=== PATIENT | male | born 1995 | race Caucasian/White ===

== ENCOUNTER 2018-08-09 13:10 | Emergency (ER) | payer MEDICAID ==
[~2018-08-09] VITALS: Ht 182.9 cm; Wt 129.7 kg
[~2018-08-09 13:10] MED LIST: NORCO 5-325 TA1 EACH PO
[2018-08-09 13:59] LABS: INFLUENZA A ANTIGEN None Detected (None Detect); INFLUENZA B ANTIGEN None Detected (None Detect)
[2018-08-09] MEDS ORDERED: AMOXICILLIN 50500 MG PO (14:33)
[2018-08-09 14:35] VITALS: BP 114/82
== END 2018-08-09 14:35 | disposition home or self-care (01) ==
LOC: M.ERS 13:10
PROVIDERS: Nurse Practitioner Family
DX: J02.0 Streptococcal pharyngitis (principal)

== ENCOUNTER 2021-09-06 19:08 | Inpatient (IN) | payer MEDICAID ==
[~2021-09-06] VITALS: Ht 185.4 cm; Wt 139.7 kg
[~2021-09-06 19:08] MED LIST changes: +AMOXICILLIN 50500 MG PO
[2021-09-06 19:32] VITALS: BP 94/62
[2021-09-06] MEDS ORDERED: ZOLOFT100 MG PO (19:53)
--- NOTE | 2021-09-06 19:54 | NUR ---
STATES DAD IS JEMIMA COHEN- [phone]- REQUIRED FOR SPEECH IMPEDIMENT
[2021-09-06] MEDS ORDERED: TRAZODONE HCL50 MG PO (19:56)
[2021-09-06 20:31] LABS: INFLUENZA A ANTIGEN Negative (Negative); INFLUENZA B ANTIGEN Negative (Negative)
[2021-09-06 20:38] LABS: HEMATOCRIT 45.7 % (42.0-52.0); MCH 28.7 pg (26.0-34.0); MCHC 35.1 g/dL (28.0-37.0); MCV 81.9 fL (80.0-100.0); MPV 8.4 fl. (7.2-11.1); NUCLEATED RBCS 0 /100WBC; PLATELET COUNT* 113 thou/uL (150-400); RBC 5.57 mil/uL (4.50-6.00); RDW-CV 13.2 % (10.5-14.5); WBC 5.8 thou/uL (4.0-11.0)
[2021-09-06 20:58] LABS: CALCIUM 7.4 mg/dL (8.5-10.1); CREATININE 1.6 mg/dL (0.6-1.3); POTASSIUM 3.6 mmol/L (3.5-5.1)
[2021-09-06 21:09] LABS: ALBUMIN 3.7 g/dL (3.4-5.0); TOTAL BILIRUBIN 0.5 mg/dL (<0.1-1.0); TOTAL PROTEIN 6.8 g/dL (6.4-8.2)
[2021-09-06 21:28] LABS: ABSOLUTE LYMPHOCYTES 0.5 thou/uL (0.8-5.3); ABSOLUTE MONOCYTES 0.2 thou/uL (0.0-1.2); ABSOLUTE NEUTROPHILS 5.2 thou/uL (1.6-8.1); PLATELET ESTIMATE ADEQUATE
--- NOTE | 2021-09-06 21:47 | NUR ---
PT STATES IT IS OKAY TO TAKE TO [facility].
[2021-09-07] VITALS (9 sets, daily range): BP systolic 107–147; BP diastolic 37–83
--- NOTE | 2021-09-07 12:32 | EKG ---
[place] [address] ELECTROCARDIOGRAM REPORT Name: MANNIE SEO Room: [place] [address] ADM IN [facility].#: [id number] Admission: 09/06/21 Attend Phys: Nj Barcenas, Discharge: Date of : 89 Date of Service: 09/06/212032 Report #: [id number] THIS REPORT FOR: //name// [facility] ED Test Date: 2021-09-06 Test Time: 20:33:58 Pat Name: MANNIE GONSALES Department: Room: [facility] Gender: M On Call: DENISE : 1995 Requested By: Tyrese Phillips Order Number: [id number] MD: Mannie Kelly Measurements Intervals [place] Rate: 98 P: 62 FL: 125 QRS: 17 QRSD: 123 T: 71 QT: 328 QTc: 419 Interpretive Statements Sinus rhythm Baseline artifact Baseline wander in lead(s) V2,V6 No previous ECG available for comparison Electronically Signed On 09-07-2021 12:31:56 LENS POLISHER by Mannie Kelly [email or web address] <ELECTRONICALLY SIGNED> By: Mannie Kelly MD, FAC 09/07/21 1231 32 32 Mannie Kelly MD, [facility] /EPI
--- NOTE | 2021-09-07 16:10 | NUR ---
CM ASSESSMENT ASSESSMENT COMPLETED WITH PT'S CONTACT ([place] [phone]). PT LIVE WITH PARENTS IN HOME WITH STEPS. PT HAS NO HX OF DME, SNF, REHAB, OR HH. PT IS INDEPENDENT WITH ADLS. CM TO FOLLOW FOR DC PLANNING.
[2021-09-08] VITALS: BP 109/74
[2021-09-08 04:00] VITALS: BP 113/64
[2021-09-08 04:06] LABS: HEMATOCRIT 43.2 % (42.0-52.0); HEMOGLOBIN 14.7 gm/dL (14.0-18.0); MCH 28.2 pg (26.0-34.0); MCHC 34.1 g/dL (28.0-37.0); MCV 82.8 fL (80.0-100.0); MPV 8.6 fl. (7.2-11.1); RBC 5.22 mil/uL (4.50-6.00); RDW-CV 13.4 % (10.5-14.5); WBC 6.5 thou/uL (4.0-11.0)
[2021-09-08 04:42] LABS: ALBUMIN 3.4 g/dL (3.4-5.0); CALCIUM 7.4 mg/dL (8.5-10.1); CREATININE 1.3 mg/dL (0.6-1.3); POTASSIUM 3.5 mmol/L (3.5-5.1); TOTAL BILIRUBIN 0.3 mg/dL (<0.1-1.0); TOTAL PROTEIN 6.5 g/dL (6.4-8.2)
[2021-09-08 08:00] VITALS: BP 103/67
--- NOTE | 2021-09-08 08:19 | NUR ---
Arrived to floor at 2300. He has a bipap and a nonrebreather. He was anxious and Dr Roche did order a 1X dose of ativan and that helped. VS stable.
[2021-09-08 12:00] VITALS: BP 98/65
--- NOTE | 2021-09-08 12:05 | NUR ---
Nutrition: Pt admitted with COVID. H/o OBE, ROSALINA, HTN. Has strep throat. Wt: 308#. Consult received for difficulty eating, SOB with activity. Regular diet ordered. Labs: BG 163, elevated LFTs, alb 3.3. Meds: albuterol, remdesivir, insulin. No meal intake recorded in [employer]. Unable to speak with pt on COVID unit. RD will order Ensure for added kcal intake when meal intake is <50%. PLEASE RECORD MEAL INTAKE %. Mild risk at this time. Will follow up on meal intake %, supplement intake, labs 09/15/21.
[2021-09-08 16:00] VITALS: BP 108/72
--- NOTE | 2021-09-08 16:10 | NUR ---
[facility] Control[facility] test on 09/05/21 from [facility].
--- NOTE | 2021-09-08 16:34 | NUR ---
CM FOLLOWUP PT NOT MED CLEAR AND ON 60L O2. WHEN MED CLEAR, PT TO DC HOME WITH PARENTS. CM TO FOLLOW FOR DC NEEDS. CM ATTEMPTED TO MAKE CONTACT WITH PT TO DETERMINE INTEREST IN IDENTIFYING A DPOA AGENT. CM UNABLE TO MAKE CONTACT AND WILL ATTMEPT AGAIN.
[2021-09-08 20:45] VITALS: BP 114/69
[2021-09-09] VITALS: BP 106/61
[2021-09-09 04:00] VITALS: BP 136/61
[2021-09-09 05:35] LABS: ABSOLUTE LYMPHOCYTES 0.7 thou/uL (0.8-5.3); ABSOLUTE MONOCYTES 0.5 thou/uL (0.0-1.2); ABSOLUTE NEUTROPHILS 3.8 thou/uL (1.6-8.1); BASOPHILS 0.3 %; HEMATOCRIT 40.5 % (42.0-52.0); HEMOGLOBIN 13.8 gm/dL (14.0-18.0); LYMPHOCYTES 13.5 %; MCH 28.2 pg (26.0-34.0); MCHC 34.1 g/dL (28.0-37.0); MCV 82.6 fL (80.0-100.0); MONOCYTES 9.7 %; MPV 8.4 fl. (7.2-11.1); NUCLEATED RBCS 0 /100WBC; PLATELET COUNT* 192 thou/uL (150-400); POLYS 76.5 %; RBC 4.91 mil/uL (4.50-6.00); RDW-CV 13.6 % (10.5-14.5); WBC 4.9 thou/uL (4.0-11.0)
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
[2021-09-09 06:01] LABS: ALBUMIN 2.9 g/dL (3.4-5.0); CALCIUM 7.5 mg/dL (8.5-10.1); CREATININE 1.3 mg/dL (0.6-1.3); MAGNESIUM 2.2 mg/dL (1.8-2.4); POTASSIUM 3.2 mmol/L (3.5-5.1); TOTAL BILIRUBIN 0.4 mg/dL (<0.1-1.0); TOTAL PROTEIN 6.3 g/dL (6.4-8.2)
[2021-09-09 09:00] VITALS: BP 108/69
[2021-09-09 12:00] VITALS: BP 105/55
[2021-09-09 16:00] VITALS: BP 129/71
[2021-09-09 21:30] VITALS: BP 107/63
[2021-09-10] VITALS: BP 116/71
[2021-09-10 04:00] VITALS: BP 122/78
--- NOTE | 2021-09-10 07:27 | NUR ---
Alert and oriented x 4. he has to be on the bipap, he desats easily. He can hardly even take a drink of water. He seems to be coughing more also. SR on the monitor but alarms with O2 decreasing. He has slept well.
[2021-09-10 08:00] VITALS: BP 101/63; BP 116/66
[2021-09-10 08:20] LABS: HEMATOCRIT 41.5 % (42.0-52.0); HEMOGLOBIN 14.1 gm/dL (14.0-18.0); MCH 28.5 pg (26.0-34.0); MCHC 34.1 g/dL (28.0-37.0); MCV 83.7 fL (80.0-100.0); MPV 8.6 fl. (7.2-11.1); PLATELET COUNT* 236 thou/uL (150-400); RBC 4.95 mil/uL (4.50-6.00); RDW-CV 13.6 % (10.5-14.5); WBC 6.3 thou/uL (4.0-11.0)
[2021-09-10 08:35] LABS: CALCIUM 7.6 mg/dL (8.5-10.1); CREATININE 1.2 mg/dL (0.6-1.3); MAGNESIUM 2.5 mg/dL (1.8-2.4); POTASSIUM 3.3 mmol/L (3.5-5.1); TOTAL BILIRUBIN 0.5 mg/dL (<0.1-1.0); TOTAL PROTEIN 6.3 g/dL (6.4-8.2)
[2021-09-10 12:00] VITALS: BP 101/63
[2021-09-10 12:04] LABS: NUCLEATED RBCS 0 /100WBC
[2021-09-10 12:06] LABS: ABSOLUTE LYMPHOCYTES 0.9 thou/uL (0.8-5.3); ABSOLUTE MONOCYTES 1.2 thou/uL (0.0-1.2); ABSOLUTE NEUTROPHILS 4.2 thou/uL (1.6-8.1); BASOPHILS 0.2 %; EOSINOPHILS 0.1 %; LYMPHOCYTES 14.4 %; MONOCYTES 18.9 %; POLYS 66.4 %
[2021-09-10 16:00] VITALS: BP 110/71
[2021-09-10 20:00] VITALS: BP 123/69
[2021-09-11] VITALS: BP 103/72
[2021-09-11 04:45] VITALS: BP 103/62
[2021-09-11 08:20] VITALS: BP 118/66
[2021-09-11 14:20] LABS: ABSOLUTE LYMPHOCYTES 1.1 thou/uL (0.8-5.3); ABSOLUTE MONOCYTES 1.3 thou/uL (0.0-1.2); ABSOLUTE NEUTROPHILS 5.6 thou/uL (1.6-8.1); BASOPHILS 0.4 %; HEMATOCRIT 42.5 % (42.0-52.0); HEMOGLOBIN 14.1 gm/dL (14.0-18.0); MCH 28.3 pg (26.0-34.0); MCV 85.7 fL (80.0-100.0); MONOCYTES 15.9 %; MPV 8.7 fl. (7.2-11.1); NUCLEATED RBCS 0 /100WBC; PLATELET COUNT* 279 thou/uL (150-400); POLYS 69.7 %; RBC 4.96 mil/uL (4.50-6.00); RDW-CV 13.7 % (10.5-14.5); WBC 8.1 thou/uL (4.0-11.0)
[2021-09-11 14:48] LABS: ALBUMIN 3.2 g/dL (3.4-5.0); CALCIUM 7.5 mg/dL (8.5-10.1); CREATININE 1.2 mg/dL (0.6-1.3); POTASSIUM 4.7 mmol/L (3.5-5.1); TOTAL BILIRUBIN 0.4 mg/dL (<0.1-1.0)
[2021-09-11 16:00] VITALS: BP 116/81
--- NOTE | 2021-09-11 17:34 | NUR ---
CM FOLLOWUP PT NOT MED CLEAR AND ON BIPAP 100%. CM TO FOLLOW FOR DC NEEDS.
[2021-09-11 20:00] VITALS: BP 116/59
[2021-09-11 23:32] VITALS: BP 118/78
[2021-09-12 03:45] VITALS: BP 110/64
[2021-09-12 04:13] VITALS: BP 85/63
[2021-09-12 07:43] LABS: ABSOLUTE BASOPHILS 0.1 thou/uL (0.0-0.2); ABSOLUTE LYMPHOCYTES 2.5 thou/uL (0.8-5.3); ABSOLUTE MONOCYTES 1.4 thou/uL (0.0-1.2); ABSOLUTE NEUTROPHILS 12.4 thou/uL (1.6-8.1); BASOPHILS 0.6 %; HEMATOCRIT 42.2 % (42.0-52.0); HEMOGLOBIN 14.1 gm/dL (14.0-18.0); LYMPHOCYTES 15.3 %; MCH 28.2 pg (26.0-34.0); MCHC 33.3 g/dL (28.0-37.0); MCV 84.8 fL (80.0-100.0); MONOCYTES 8.6 %; NUCLEATED RBCS 0 /100WBC; PLATELET COUNT* 310 thou/uL (150-400); POLYS 75.5 %; RBC 4.98 mil/uL (4.50-6.00); RDW-CV 13.7 % (10.5-14.5); WBC 16.5 thou/uL (4.0-11.0)
[2021-09-12 07:48] LABS: BE -2.2 mmol/L (-2 to +3); PCO2 33.7 mmHg (35.0-45.0); PO2 37.4 mmHg (75.0-100.0); pH 7.421 (7.340-7.450)
--- NOTE | 2021-09-12 07:48 | NUR ---
PT ON BIPAP AT START OF SHIFT. SR/ST ON DATASTAGE CONSULTANT. AT 0138, PT C/O NAUSEA-PRN ZOFRAN ADMINISTERED.ATTEMPTED TO TAKE PATIENT OFF BIPAP AND PLACED ON HHF 60L 100% FiO2 AND NONREBREATHER 15L. PT O2 SAT IN HIGH 70'S TO LOW 80'S. PT TACHYCARDIC AND TACHYPNEIC. HR'S 120'S AND RR 30'S. DR. NGUYEN NOTIFIED AND NEW ORDERS RECEIVED FOR IVPB PHENEGRAN AND LORAZEPAM. PT PT PLACED BACK ON BIPAP.NAUSEA RESOLVED BUT PT CONTINUED TO BE RESTLESS AND VERY ANXIOUS. DR. NGUYEN NOTIFIED AND ORDERS RECEIVED FOR PRECEDEX GTT. ATTEMPTED TO REACH PT'S FATHER, BUT UNSUCCESSFUL AFTER THREE ATTEMPTS. PT'S STEPMOAlexandra GAMBLE NOTIFIED OF PT'S CURRENT CONDITION. PRECECEX MED ADMINISTERED AND TITRATED PER PROTOCOL, PT'S BP STARTED TO DROP DOWN, CONTINUED TO BE TACHYEPNIC, HR 120-140'S. DR. CLIFFORD CALLED FOR INTUBATION. AT 0437, INITIAL SEDATION IVPUSH MEDS GIVEN PER DR. CLIFFORD AND PT INTUBATED BY PHYSICIAN. STAT CXR ORDERED, MULTIPLE ORDERS RECEIVED FOR SEDATION. DR. OWEN CONSULTED AND CALLED, NEW ORDERS RECEIVED. DR. NGUYEN CALLED TO BEDSIDE. NEW ORDERS RECEIVED. PT REQUIRED MANUAL VENTILATION AFTER INTUBATION DUE TO UNABLE TO KEEP O2 SATS UP WITH VENTILATOR. O2 SAT REMAINED 60'S-70'S WITH MANUAL VENTILATION. PATIENT'S FATHER, JEMIMA, NOTIFIED OF PT'S CONDITION AND ADVISED TO COME VITO. AT 0723 BREANA CASTRO CALLED, NO PULSE, COMPRESSIONS STARTED. ROSC ACHIEVED AT 07.PHYSICIAN AT BEDSIDE, FAMILY AWAITING OUTSIDE ROOM AND INFORMED OF UPDATES.
[2021-09-12 07:52] LABS: APTT 30.7 Seconds (25.0-31.3); INR 1.2; PROTIME 12.4 Seconds (9.20-11.50)
[2021-09-12 07:56] LABS: ALBUMIN 2.6 g/dL (3.4-5.0); CALCIUM 6.8 mg/dL (8.5-10.1); CREATININE 1.9 mg/dL (0.6-1.3); MAGNESIUM 2.3 mg/dL (1.8-2.4); PHOSPHORUS* 2.6 mg/dL (2.5-4.9); POTASSIUM 3.4 mmol/L (3.5-5.1); TOTAL BILIRUBIN 0.6 mg/dL (<0.1-1.0); TOTAL PROTEIN 5.9 g/dL (6.4-8.2)
--- NOTE | 2021-09-12 13:07 | NUR ---
BODY DC'D FROM UNIT PER HOME, ESCORTED BY SECURITY.
--- NOTE | 2021-09-12 17:23 | NUR ---
CM FOLLOWUP PT TODAY, 09/12/21. PT'S FAMILY PROVIDED WITH [facility]RELL ASSISTANCE CONTACT ([phone]).
== END 2021-09-12 08:15 | DRG 177 ==
LOC: M.ERS 19:08 → M.TBA-ER 21:07 → M.ORTHSURG 09-07 22:52
PROVIDERS: Internal Medicine; Personal Emergency Response Attendant; Physician Assistant; ADMIT Internal Medicine; ATTEND Internal Medicine
PROC: XW033E5 Introduction of Remdesivir Anti-infective into Peripheral Vein, Percutaneous Approach, New Technology Group 5 (ICD-10-PCS; principal; 2021-09-07)
PROC: 5A0935A Assistance with Respiratory Ventilation, Less than 24 Consecutive Hours, High Flow/Velocity Cannula (ICD-10-PCS; principal; 2021-09-07)
PROC: 5A09357 Assistance with Respiratory Ventilation, Less than 24 Consecutive Hours, Continuous Positive Airway Pressure (ICD-10-PCS; 2021-09-08)
PROC: 5A0935A Assistance with Respiratory Ventilation, Less than 24 Consecutive Hours, High Flow/Velocity Cannula (ICD-10-PCS; 2021-09-08)
PROC: 5A0935A Assistance with Respiratory Ventilation, Less than 24 Consecutive Hours, High Flow/Velocity Cannula (ICD-10-PCS; 2021-09-09)
PROC: 5A09357 Assistance with Respiratory Ventilation, Less than 24 Consecutive Hours, Continuous Positive Airway Pressure (ICD-10-PCS; 2021-09-09)
PROC: 5A09457 Assistance with Respiratory Ventilation, 24-96 Consecutive Hours, Continuous Positive Airway Pressure (ICD-10-PCS; 2021-09-10)
PROC: 5A0935A Assistance with Respiratory Ventilation, Less than 24 Consecutive Hours, High Flow/Velocity Cannula (ICD-10-PCS; 2021-09-10)
PROC: B54BZZA Ultrasonography of Right Lower Extremity Veins, Guidance (ICD-10-PCS; 2021-09-12)
PROC: 06HY33Z Insertion of Infusion Device into Lower Vein, Percutaneous Approach (ICD-10-PCS; 2021-09-12)
DX: U07.1 COVID-19 (principal); J96.01 Acute respiratory failure with hypoxia; J12.82 Pneumonia due to coronavirus disease 2019; N17.0 Acute kidney failure with tubular necrosis; B17.9 Acute viral hepatitis, unspecified; F41.9 Anxiety disorder, unspecified; I10 Essential (primary) hypertension; E66.01 Morbid (severe) obesity due to excess calories; I99.8 Other disorder of circulatory system; Z68.41 Body mass index [BMI] 40.0-44.9, adult